=== PATIENT | female | born 1990 | race Caucasian/White ===

== ENCOUNTER 2023-05-13 19:47 | Emergency (ER) | payer OTHER, SELFPAY ==
[2023-05-13 19:52] VITALS: BP 145/94; PULSE 69; RESP 14; TEMP 36.7; O2SAT 97; BMI 22.3
--- NOTE | 2023-05-13 20:05 | ED_ITS ---
HPI - Skin/Abscess/Foreign Bdy General: Chief complaint: Skin/Abscess/Foreign Body Stated complaint: Rash all over Time Seen by Provider: 05/13/23 19:55 Source: patient and family () Mode of arrival: ambulatory Limitations: no limitations History of Present Illness: Patient is a nice 33-year-old female presents to ED today along with her for evaluation of a rash. She states rash initially started a few days ago. She states [place] have [place] a lot and doing a lot of yard work as well and feels like she may have been exposed to poison jyoti. She has been using triamcinolone topical steroid without any improvement. She is concerned as rash continues to spread. She states most of rash is located to her bilateral arms and legs but does have a few spots on her buttocks. She describes it as itchy and burning. MD complaint: rash Onset (ago): day(s) Location: generalized Severity: moderate Quality: burning and pruritic Relieving factors: none Exacerbating factors: none Context: other (plant exposure) Associated symptoms: Reports no associated symptoms; Deny chills or fever(s) Treatments prior to arrival: corticosteroid (topical) Review of Systems Const: Denies: fever(s), chills or body aches Card: Denies: chest pain Resp: Denies: dyspnea Skin/Breast: Reports: rash and pruritus Physical Exam Const: COMMON NORMALS: no acute distress, average body habitus, patient oriented x3, no limitations, healthy appearing, alert and well nourished Extremity: GENERAL: Yes normal exam except as noted Neuro: COMMON NORMALS: patient oriented x3 SENSORIUM/ORIENTATION: Yes alert Skin: NARRATIVE SKIN EXAM: patient has several areas of erythematous lesions to bilateral UE/LEs-worst is to L volar forearm which has classic linear streaking with microvesicular formations consistent with a plant dermatitis Course Vital Signs: Vital signs: Vital Signs Temperature 98.1 F 05/13/23 19:52 Pulse Rate 69 05/13/23 19:52 Respiratory Rate 14 05/13/23 19:52 Blood Pressure 145/94 05/13/23 19:52 Pulse Oximetry 97 05/13/23 19:52 Oxygen Delivery Me thod Room Air 05/13/23 19:52 MDM - Skin/Abscess/Foreign Bdy Medicial Decision Making History and physical exam is consistent with a plant dermatitis. She was given IM hydrocortisone for fast-acting relief. She will be placed on a long 11-day prednisone taper for home. Other conservative therapies discussed. Return ED precautions given. No radiology studies performed this visit Discharge Plan Discharge Patient Disposition: Home Clinical Impression: Contact dermatitis due to poison jyoti Condition: Stable Prescriptions: New prednisone 10 mg tablet 10 mg PO DAILY 10 Days Qty: 41 0RF Rx Instructions: Take 6 tabs on days 1-2, 5 tabs on days 3-4, 4 tabs on days 5-6, 3 tabs on day 7-8, 2 tabs on days 9-10, and 1 tab on day 11 Discharge Orders: Discharge ED (Routine); Ordered 05/13/23 Ordered By: Chhaya Mejía Referrals: Fei Sandoval MD [Primary Care Provider] - Patient Instructions: Poison Jyoti (ED), Poison Jyoti, [place], and [place] - Adult Coding Level of Care Code ED Electronic Drafter for Malathi Jarquin
[2023-05-13] MEDS: hydrocortisone 100 mg/2 mL SDV 50 MG IM (20:50)
== END 2023-05-13 21:14 | disposition home or self-care (01) ==
PROVIDERS: Emergency Provider Physician Assistant; PCP Family Medicine
DX: L23.7 Allergic contact dermatitis due to plants, except food (principal)
CPT/HCPCS: 96372; 99284; J1720